=== PATIENT | male | born 1990 | race Caucasian/White ===

== ENCOUNTER 2019-11-13 19:58 | Emergency (ER) | payer OTHER ==
[~2019-11-13] VITALS: Ht 167.6 cm; Wt 95.5 kg
[2019-11-13 20:27] VITALS: BP 120/71; TEMP 97.7
[2019-11-13] MEDS ORDERED: NORCO 325 MG-51 TAB PO (21:48)
[2019-11-13 22:20] VITALS: PULSE 61
== END 2019-11-13 22:20 | disposition home or self-care (01) ==
LOC: COL.ER 19:58
DX: S43.402A Unspecified sprain of left shoulder joint, initial encounter (principal); X50.0XXA Overexertion from strenuous movement or load, initial encounter; Y92.39 Other specified sports and athletic area as the place of occurrence of the external cause
CPT/HCPCS: J2060; J3010; J7040